=== PATIENT | male | born 1990 | race American Indian/Alaskan Native ===

== ENCOUNTER 2019-04-30 05:29 | Emergency (ER) | payer SELFPAY ==
[2019-04-30 05:35] VITALS: BP 120/70
[2019-04-30] MEDS ORDERED: BOOSTRIX IM ONE (06:02)
[2019-04-30] MEDS ORDERED: IBUPROFEN PO ONE (06:02)
[2019-04-30] MEDS ORDERED: XYLOCAINE 1% MPF 5 mL INFILTRATI ONE (06:03)
--- NOTE | 2019-04-30 06:08 | Emergency Department Report ---
ED Laceration HPI - HPI Chief Complaint: Wound/Laceration Stated Complaint: LEFT HAND INJURY Time Seen by Provider: 04/30/19 05:55 Occurred When: Today Location: Upper Extremity (dorsal left hand laceration) Severity: moderate Tetanus Status: Not up to Date (Given during this visit) Laceration Symptoms: Yes Pain, No Foreign Body Sensation, No Numbness, No Weakness Other History: Patient is a 28-year-old -[place] male with no past medical history presents to the ED with complaint of painful bleeding laceration on the dorsal left hand after a piece of metal at work punctured the dorsal aspect of his left hand about an hour ago. Patient denies numbness or tingling of the left hand or weakness. ED Review of Systems ROS: Stated complaint: LEFT HAND INJURY Other details as noted in HPI Comment: All other systems reviewed and negative Constitutional: see HPI. denies: chills, fever Eyes: as per HPI. denies: eye pain, eye discharge, vision change ENT: as per HPI. denies: ear pain, throat pain Respiratory: no symptoms reported. denies: cough, shortness of breath, wheezing Cardiovascular: as per HPI. denies: chest pain, palpitations Endocrine: no symptoms reported, see HPI. denies: excessive sweating, flushing, increased hunger, increased urine, unexplained weight gain Gastrointestinal: as per HPI. denies: abdominal pain, nausea, diarrhea Genitourinary: as per HPI. denies: urgency, dysuria Musculoskeletal: as per HPI, other (left hand pain due to a bleeding dorsal left hand laceration). denies: back pain, joint swelling, arthralgia Skin: as per HPI. denies: rash, lesions, change in color, change in hair/nails Neurological: as per HPI. denies: headache, weakness, numbness, paresthesias, confusion, abnormal gait, other Psychiatric: as per HPI. denies: anxiety, depression Hematological/Lymphatic: as per HPI. denies: easy bleeding, easy bruising ED Past Medical Hx - Past Medical History Previous Medical History?: No - Surgical History Past Surgical History?: No - Social History Smoking Status: Current Every Day Smoker Substance Use Type: Marijuana - Medications Home Medications: Home Medications Medication Instructions Recorded Confirmed Last Taken Type Ibuprofen [Motrin] 600 mg PO Q8H PRN #20 tablet 06/06/19 Unknown Rx cephALEXin [Keflex] 500 mg PO Q8HR #30 cap 04/30/19 Unknown Rx Laceration Physical Exam - Exam General: Vital signs noted. No distress. Alert and acting appropriately. Wound Length (cm): 2 Laceration Location: Upper Extremity (Dorsal left hand) Full Body Front + Back: 1 - Dorsal left hand 2 cm laceration Laceration Exam: Yes Normal Distal CMS, No Foreign Body, No Exposed Tendon, Vessel, or Nerve, No Tendon Injury ED Course Vital Signs 04/30/19 05:33 Temperature 98.0 F Pulse Rate 60 Respiratory 17 Rate Blood Pressure 120/70 O2 Sat by Pulse 100 Oximetry - Reevaluation(s) Reevaluation #1: 04/30/19 06:08 Patient is alert and oriented 3 and is not in distress with normal vital signs. Patient was treated for pain, and also given tetanus booster vaccination. The dorsal left hand laceration was sutured per protocol, and the patient tolerated the procedure well. Patient discharged home on medications including prophylactic antibiotics and advised to follow-up with his primary care physician in 7-10 days for reevaluation or return to the ED immediately if symp toms get worse. Patient was otherwise advised to return to the ED or to his primary care physician in 12-14 days for suture removal. - Laceration /Wound Repair Left Dorsal Hand Wound Location: upper extremity (dorsal left hand) Wound Length (cm): 2 Wound's Depth, Shape: superficial, stellate Wound Explored: contaminated Irrigated w/ Saline (ccs): 20 Betadine Prep?: Yes Anesthesia: 1% Lidocaine Volume Anesthetic (ccs): 5 Wound Debrided: extensive Wound Repaired With: sutures Suture Size/Type: 4:0, proline Number of Sutures: 5 Layer Closure?: No Sterile Dressing Applied?: Yes Progress: Patient tolerated the procedure well. ED Medical Decision Making - Medical Decision Making Patient is alert and oriented 3 and is not in distress with normal vital signs. Patient was treated for pain, and also given tetanus booster vaccination. The dorsal left hand laceration was sutured per protocol, and the patient tolerated the procedure well. Patient discharged home on medications including prophylactic antibiotics and advised to follow-up with his primary care physician in 7-10 days for reevaluation or return to the ED immediately if symptoms get worse. Patient was otherwise advised to return to the ED or to his primary care physician in 12-14 days for suture removal. - Differential Diagnosis Dorsal left hand laceration Critical care attestation.: If time is entered above; I have spent that time in minutes in the direct care of this critically ill patient, excluding procedure time. ED Disposition Clinical Impression: Laceration of left hand Qualifiers: Encounter type: initial encounter Foreign body presence: without foreign body Qualified Code(s): S61.412A - Laceration without foreign body of left hand, initial encounter Disposition: TO HOME OR SELFCARE Is pt being admited?: No Does the pt Need Aspirin: No Condition: Stable Instructions: Suture Care (ED), Laceration (ED) Additional Instructions: Take medication with food, drink plenty of fluids and follow-up with your primary care physician in 7-10 days for reevaluation. Return to the ED immediately if symptoms get worse. Otherwise return to the ED or see her primary care physician in 12-14 days for suture removal. Prescriptions: cephALEXin [Keflex] 500 mg PO Q8HR #30 cap Ibuprofen [Motrin] 600 mg PO Q8H PRN #20 tablet PRN Reason: Pain Referrals: [facility] [Outside] - 3-5 Days Time of Disposition: 06:12 Print Language: KOREAN
== END 2019-04-30 06:40 | disposition home or self-care (01) ==
LOC: ED 05:29
DX: S61.412A Laceration without foreign body of left hand, initial encounter (principal); F17.200 Nicotine dependence, unspecified, uncomplicated; F12.10 Cannabis abuse, uncomplicated; W26.8XXA Contact with other sharp object(s), not elsewhere classified, initial encounter; Y93.89 Activity, other specified; Y92.69 Other specified industrial and construction area as the place of occurrence of the external cause; Y99.0 Civilian activity done for income or pay
CPT/HCPCS: 90471; 90715; 99282

== ENCOUNTER 2019-11-15 03:41 | Emergency (ER) | payer SELFPAY ==
[2019-11-15 03:51] VITALS: BP 111/58
[2019-11-15] MEDS ORDERED: diphenhydrAMINE 25 MG CAP PO ONE (04:33)
[2019-11-15] MEDS ORDERED: FAMOTIDINE 20 MG TAB PO ONE (04:33)
[2019-11-15] MEDS ORDERED: dexAMETHasone 20 MG/5 ML VIAL IM ONE (04:35)
--- NOTE | 2019-11-15 04:37 | Emergency Department Report ---
- General Chief complaint: Allergic Reaction Stated complaint: ALLERGIC REACTION Time Seen by Provider: 11/15/19 04:31 Source: patient Mode of arrival: Ambulatory Limitations: No Limitations - History of Present Illness Initial comments: 29-year-old -[place] male presents to the emergency room for an allergic reaction with generalized itching starting yesterday. Patient states that he had some Chick-rg-A and later on today he started having itching rash. Patient denies any shortness of breath chest pains nausea no vomiting no wheezing. Patient reports he did take Benadryl and a shower. Patient denies any new detergents or colognes used soaps . Patient denies any allergies to medications or foods. MD complaint: rash -: Last night Tetanus Up to Date: yes Location: generalized Severity scale (0 -10): 0 Associated symptoms: denies other symptoms Treatments Prior to Arrival: none - Related Data Previous Rx's Medication Instructions Recorded Last Taken Type Ibuprofen [Motrin] 600 mg PO Q8H PRN #20 tablet 04/30/19 Unknown Rx cephALEXin [Keflex] 500 mg PO Q8HR #30 cap 04/30/19 Unknown Rx Famotidine [Pepcid] 20 mg PO BID #10 tablet 11/15/19 Unknown Rx predniSONE [Deltasone] 20 mg PO QDAY #4 tab 11/15/19 Unknown Rx Allergies Allergy/AdvReac Type Severity Reaction Status Date / Time No Known Allergies Allergy Verified 04/30/19 06:10 Abscess Boil HPI - HPI Chief Complaint: Allergic Reaction Stated Complaint: ALLERGIC REACTION Time Seen by Provider: 11/15/19 04:31 Home Medications: Previous Rx's Medication Instructions Recorded Last Taken Type Ibuprofen [Motrin] 600 mg PO Q8H PRN #20 tablet 04/30/19 Unknown Rx cephALEXin [Keflex] 500 mg PO Q8HR #30 cap 04/30/19 Unknown Rx Famotidine [Pepcid] 20 mg PO BID #10 tablet 11/15/19 Unknown Rx predniSONE [Deltasone] 20 mg PO QDAY #4 tab 11/15/19 Unknown Rx Allergies/Adverse Reactions: Allergies Allergy/AdvReac Type Severity Reaction Status Date / Time No Known Allergies Allergy Verified 04/30/19 06:10 ED Review of Systems ROS: Stated complaint: ALLERGIC REACTION Other details as noted in HPI Comment: All other systems reviewed and negative ED Past Medical Hx - Past Medical History Previous Medical History?: No - Surgical History Past Surgical History?: No - Social History Smoking Status: Current Every Day Smoker Substance Use Type: Marijuana - Medications Home Medications: Home Medications Medication Instructions Recorded Confirmed Last Taken Type Ibuprofen [Motrin] 600 mg PO Q8H PRN #20 tablet 04/30/19 Unknown Rx cephALEXin [Keflex] 500 mg PO Q8HR #30 cap 04/30/19 Unknown Rx Famotidine [Pepcid] 20 mg PO BID #10 tablet 11/15/19 Unknown Rx predniSONE [Deltasone] 20 mg PO QDAY #4 tab 11/15/19 Unknown Rx ED Physical Exam - General Limitations: No Limitations General appearance: alert, in no apparent distress - Head Head exam: Present: atraumatic, normocephalic - Eye Eye exam: Present: normal appearance - ENT ENT exam: Present: mucous membranes moist - Respiratory Respiratory exam: Present: normal lung sounds bilaterally. Absent: respiratory distress - Cardiovascular Cardiovascular Exam: Present: regular rate, normal rhythm. Absent: systolic murmur, diastolic murmur, rubs, gallop - Neurological Exam Neurological exam: Present: alert, oriented X3, normal gait - Psychiatric Psychiatric exam: Present: normal affect, normal mood - Skin Skin exam: Present: urticaria (back chest arms neck) ED Course Vital Signs 11/15/19 03:45 Temperature 97.7 F Pulse Rate 56 L Respiratory 18 Rate Blood Pressure 111/58 O2 Sat by Pulse 100 Oximetry ED Medical Decision Making - Medical Decision Making 29-year-old -[place] male presents to the emergency room for an allergic reaction with generalized itching starting yesterday. Patient states that he had some Chick-rg-A and later on today he started having itching rash. Patient denies any shortness of breath chest pains nausea no vomiting no wheezing. Patient reports he did take Benadryl and a shower. Patient denies any new detergents or colognes used soaps . Patient denies any allergies to medications or foods. Given dexamethasone 10 mg IM, Pepcid 20 mg by mouth, Benadryl 25 mg by mouth Critical care attestation.: If time is entered above; I have spent that time in minutes in the direct care of this critically ill patient, excluding procedure time. ED Disposition Clinical Impression: Urticaria Disposition: [id number] TO HOME OR SELFCARE Is pt being admited?: No Does the pt Need Aspirin: No Condition: Stable Instructions: Urticaria (ED) Additional Instructions: Continue taking Benadryl every 6-8 hours as needed. Complete prednisone prescription. Complete Pepcid prescription as prescribed. Follow up with her primary care provider symptoms persist or gets worse Prescriptions: predniSONE [Deltasone] 20 mg PO QDAY #4 tab Famotidine [Pepcid] 20 mg PO BID #10 tablet Referrals: PRIMARY CARE, [Primary Care Provider] - 3-5 Days
== END 2019-11-15 05:00 | disposition home or self-care (01) ==
LOC: ED 03:41
DX: L50.9 Urticaria, unspecified (principal); F17.200 Nicotine dependence, unspecified, uncomplicated
CPT/HCPCS: 96372; 99282; J1100